=== PATIENT | male | born 1950 | race Two or more races ===

== ENCOUNTER → 2023-10-10 | Outpatient (CLI) | payer OTHER ==
[~2023-10-10] VITALS: Ht 162.6 cm; Wt 81.6 kg
[~2023-10-10] MED LIST: ATROPINE SULF 0.5 MG/5ML SYR ONE; DOBUTamine 1000MCG/ML 100 ML IV ONE; DOBUTamine 1000MCG/ML 250 ML IV ONE; METOPROLOL TARTRATE 1MG/1ML-5ML VIAL IV ONE; REGADENOSON 0.4 MG/5 ML SYRG IV ONE
[2023-10-10 19:02] VITALS: BP 150/62; PULSE 39; RESP 14
== END | disposition home or self-care (01) ==
LOC: XYW 10-09 07:13
PROVIDERS: ATTEND Specialist
DX: I13.10 Hypertensive heart and chronic kidney disease without heart failure, with stage 1 through stage 4 chronic kidney disease, or unspecified chronic kidney disease (principal); N18.6 End stage renal disease; E78.5 Hyperlipidemia, unspecified; R00.0 Tachycardia, unspecified
CPT/HCPCS: 93017; 93350; J1250; J2785; J0461